=== PATIENT | male | born 1990 | race Hispanic/Latino ===

== ENCOUNTER 2016-08-19 16:59 | Emergency (ER) | payer OTHER ==
[~2016-08-19] VITALS: Ht 162.6 cm; Wt 61.2 kg
[~2016-08-19 16:59] MED LIST: AUGMENTIN 875-1 EACH PO; IBUPROFEN600 M1 PO; LOTRIMIN CR1 %/30 GM TOP; PERCOCET 5-3251 EACH PO
[2016-08-19 17:15] VITALS: BP 137/80
[2016-08-19] MEDS ORDERED: ZOFRAN ODT4 M1 SL (19:09)
--- NOTE | 2016-08-19 19:09 | ED GI/GU/ABDOMINAL COMPLAINT ---
History of Present Illness General Chief Complaint: Nausea, Vomiting, Diarrhea Stated Complaint: VOMITTING Source: patient, old records Exam Limitations: no limitations Vital Signs & Intake/Output Vital Signs & Intake/Output Vital Signs Date Time Temp Pulse Resp B/P Pulse O2 O2 Flow FiO2 Ox Delivery Rate 08/19 1715 96.1 85 20 137/80 98 Room Air Room Air Allergies Coded Allergies: NO KNOWN ALLERGIES (04/15/16) Reconcile Medications Amoxicillin/Potassium Clav (Augmentin 875-125 Tablet) 875 MG-125 MG TABLET 1 TAB PO BID abscess Ibuprofen 600 MG TABLET 1 TAB PO Q6PRN PRN pain with food Ondansetron (Zofran Odt) 4 MG TAB.RAPDIS 1 TAB SL TID PRN nausea Oxycodone HCl/Acetaminophen (Percocet 5-325 MG Tablet) 5 MG-325 MG TABLET 1 TAB PO Q6PRN PRN severe pain Triage Note: PT TO ED WITH C/O NAUSEA AND VOMITING SINCE 6PM LAST NIGHT "I THINK IT WAS SOMETHING I ATE". ALOT BETTER NOW, MY WORK WANTED ME TO GET CHECKED OUT, AND I NEED A NOTE FOR WORK. PT DENIES DIARRHEA. Triage Nurses Notes Reviewed? yes Onset: Abrupt Duration: day(s): (2), better, resolved prior to arrival Timing: recent history Quality/Severity: aching, cramping Severity Numbers: 1 Location: generalized abdomen Radiation: no radiation Activities at Onset: eating (pizza) Prior Abdominal Problems: none No Modifying Factors: none Associated Symptoms: denies HPI: 26-year-old male presents emergency room after having several episodes of nausea vomiting since last night after he states he ate bad pizza. He states that he is feeling better today however need to come in to get a note for work. He states that initially he had crampy generalized nonradiating abdominal pain 5 out of 10 that has since resolved. His abdominal surgeries given for an appendectomy. No fever no chills no sick contacts no cough congestion chest pain or urinary symptoms. The patient states that he smoked marijuana prior to coming to the ER earlier this afternoon and got the munchies afterwards. He was able to tolerate by mouth without any complicatons denies nausea at this time (BLAINE JACINTO) Past History Travel History Traveled to [place] past 21 day No Medical History Any Pertinent Medical History? see below for history Neurological: NONE EENT: NONE Cardiovascular: NONE Respiratory: NONE Gastrointestinal: NONE Hepatic: NONE Renal: NONE Musculoskeletal: NONE Psychiatric: anxiety Endocrine: NONE Blood Disorders: NONE Cancer(s): NONE [employer]ING [employer] PROGRAMMER/Reproductive: genital herpes Surgical History Surgical History: non-contributory Psychosocial History What is your primary language [place] Tobacco Use: Current Not Daily Daily Tobacco Use Amount/Type: =< 4 Cigarettes daily ETOH Use: occasional use Illicit Drug Use: marijuana Family History Hx Contributory? No (BLAINE JACINTO) Review of Systems Review of Systems Constitutional: Reports: see HPI. All Other Systems: Reviewed and Negative Comments Review of systems: See HPI, All other systems negative. Constitutional, no chills no fever, no malaise HEENT: No visual changes no sore throat no congestion Cardiovascular: No chest pain , no palpitation Skin, no rashes, no change in skin Respiratory: No dyspnea no cough no sputum GI: nausea vomiting, no diarrhea, no bloating/constipation : No dysuria No hematuria Muscle skeletal: No joint pain, no back pain, no neck pain, Neurologic: No numbness no headache Psych: No stress Heme/endocrine: No bruising no bleeding Immunology: No lymphadenopathy (BLAINE JACINTO) Physical Exam Physical Exam General Appearance: well developed/nourished, no apparent distress, alert, awake , comfortable Gastrointestinal: normal bowel sounds, soft, non-tender Comments: Well-developed well-nourished person in no acute distress HEENT: Normal EENT exam; PERRL, EOMI, HEAD is atraumatic. moist mucous membranes. Neck: Supple, normal range of motion Back: Nontender, no CVA tenderness. Full range of motion Cardiovascular: Regular rate and rhythms no murmurs rubs or gallops Respiratory: No respiratory distress. Patient speaking in full complete sentences. Breath sounds clear to auscultation bilaterally: NO W/R/R Abdomen: Soft, nontender nondistended, no appreciable organomegaly. Normal bowel sounds. No rebound/guarding, no right upper quadrant tenderness negative Cruz sign Extremity: No edema, full range of motion of extremities Neuro: Alert oriented x3, motor sensory normal. There were no obvious focal neurologic abnormalities. Skin: No appreciable rash on exposed skin, skin is warm and dry. Psych: Mood and affect is normal, memory and judgment is normal. Core Measures ACS in differential dx? No Severe Sepsis Present: No Septic Shock Present: No (BLAINE JACINTO) Progress Differential Diagnosis: biliary colic, bowel obstruction, cholecystitis, diverticulitis, gastritis, hepatitis, inflamm bowel dis, pancreatitis, peptic ulcer, PUD/GERD, perforated viscous Plan of Care: Patient clinically appears well feels better tolerating by mouth challenge prescription for Zofran was provided advised bland diet clear liquids abdomen is soft nontender patient is afebrile appearing nontoxic he feels comfortable with plan answered all his questions cleared for discharge Initial ED EKG: none (BLAINE JACINTO) Departure Departure Time of Disposition: 1907 Disposition: HOME OR SELF CARE Condition: Stable Clinical Impression Primary Impression: Nausea & vomiting Referrals: PATIENT HAS NO PRIMARY CARE DR (PCP/Family) Additional Instructions: zofran for nausea, bland diet, clear liquids advance diet as tolerated. return to the ER at anytime sooner wtih any concerns or worsening of your symptoms despite medication. Departure Forms: Customer Survey General Discharge Information Prescriptions: Current Visit Scripts Ondansetron (Zofran Odt) 1 TAB SL TID PRN nausea #10 TAB (BLAINE JACINTO) PA/KILN PUSHER Co-Sign Statement Statement: ED Attending supervision documentation- [] I saw and evaluated the patient. I have also reviewed all the pertinent lab results and diagnostic results. I agree with the findings and the plan of care as documented in the PA's/KILN PUSHER's documentation. [X] I have reviewed the ED Record and agree with the PA's/KILN PUSHER's documentation. [] Additions or exceptions (if any) to the PAs/KILN PUSHER's note and plan are summarized below: [] (ALISE BULLOCK,DENIA)
== END 2016-08-19 19:16 ==
LOC: ERH 16:59
DX: R11.2 Nausea with vomiting, unspecified (principal)